=== PATIENT | female | born 1965 | race Caucasian/White ===

== ENCOUNTER → 2020-12-10 | Outpatient (CLI) | payer BC, OTHER ==
[~2020-12-10] MED LIST: ADVIL200 M3 PO; BACLOFEN20 MG PO; BUPROPION XL300 MG PO; FLEXERIL PO; GABAPENTIN PO; HYDROCODON-ACE1 EAC7 PO; LEVOTHYROXINE0.05 MG PO; LIORESAL 10 MG10 MG PO; LYRICA 75 MG CA75 MG PO; NABUMETONE 500500 M1 PO; NEURONTIN600 MG PO; PENTAZOCINE/NAL1 TA1 PO; TRAMADOL 50 MG50 MG PO; VOLTAREN GEL 1100 G1 TOP; WELLBUTRIN 100100 MG PO; WELLBUTRIN 75 M75 M1 PO
== END ==
LOC: SJCVCIMAG 10:52
PROVIDERS: ATTEND Internal Medicine
DX: I11.9 Hypertensive heart disease without heart failure (principal); E78.5 Hyperlipidemia, unspecified; R07.9 Chest pain, unspecified; R94.31 Abnormal electrocardiogram [ECG] [EKG]